=== PATIENT | male | born 1975 | race Caucasian/White ===

== ENCOUNTER 2020-05-21 22:35 | Inpatient (IN) | payer OTHER ==
[~2020-05-21] VITALS: Ht 175.3 cm; Wt 100.2 kg
--- NOTE | 2020-05-21 23:14 | NUR ---
bibs for c/o midsernal cp , nonradiating, 01/19 x 2 hrs. + sob. - h/a, -n/v. w/ [facility]. pt ambulatory to er bed and was placed on a monitor, VSS. will cont to monitor ,
[2020-05-21 23:21] LABS: BASOPHILS % (AUTO) 0.8 % (0.0-2.0); EOSINOPHILS % (AUTO) 2.7 % (0.0-6.0); HEMATOCRIT 42 % (39-51); HEMOGLOBIN 14.3 g/dL (13.5-17.5); LYMPHOCYTES # (AUTO) 1.6 /CMM (0.8-4.8); LYMPHOCYTES % (AUTO) 27.8 % (20.0-44.0); MEAN CORPUSCULAR HGB CONC 34 g/dl (31.0-36.0); MEAN CORPUSCULAR VOLUME 92 fL (80-96); MONOCYTES # (AUTO) 0.4 /CMM (0.1-1.30); MONOCYTES % (AUTO) 7.7 % (2.0-12.0); NEUTROPHILS # (AUTO) 3.4 /CMM (1.8-8.9); PLATELET COUNT (AUTO) 153 /CMM (150-450); RED BLOOD CELL COUNT(AUTO) 4.51 MIL/uL (4.5-6.0); WHITE BLOOD COUNT (AUTO) 5.6 K/uL (4.3-11.0)
[2020-05-21 23:39] LABS: CALCIUM, SERUM 9.3 mg/dL (8.5-10.1); CARBON DIOXIDE 25 mmol/L (21-32); CHLORIDE 102 mmol/L (98-107); GLUCOSE 93 mg/dL (74-106); POTASSIUM 3.4 mmol/L (3.5-5.1); SODIUM SERUM 138 mmol/L (136-145); UREA NITROGEN, BLOOD 16 mg/dL (7-18)
[2020-05-21 23:44] LABS: ALANINE AMINOTRANSFERASE 55 U/L (12-78); ALBUMIN 3.7 g/dL (3.4-5.0); ALKALINE PHOSPHATASE 72 U/L (46-116); ASPARTATE AMINOTRANSFERASE 24 U/L (15-37); B-TYPE NATRIURETIC PEPTIDE 45 PG/ML (0-125); BILIRUBIN,DIRECT 0.1 mg/dL (0.0-0.2); BILIRUBIN,TOTAL 0.4 mg/dL (0.2-1.0)
[2020-05-22] MEDS ORDERED: NITROGLYCERIN 0.4 MG/TAB BOTTLE SL ONE
[2020-05-22] MEDS ORDERED: CEFTRIAXONE 1GM BAG (ER ONLY) 1 GM/50 ML PIGGYBACK IV ONE
[2020-05-22] MEDS ORDERED: AZITHROMYCIN 500 MG in IV D5W 250 ML IV ONE ×2
[2020-05-22] MEDS ORDERED: NITROGLYCERIN 0.4 MG/TAB BOTTLE ONE (00:08)
[2020-05-22] MEDS ORDERED: CEFTRIAXONE 1GM BAG (ER ONLY) 50 ML IV ONE (00:08)
--- NOTE | 2020-05-22 00:15 | NUR ---
Call from lab. Rapid covid negative.
[2020-05-22] MEDS ORDERED: AZITHROMYCIN 500 MG VIAL ONE (00:28)
[2020-05-22 00:48] LABS: D-DIMER 0.65 mg/L(FEU (0.17-0.50)
--- NOTE | 2020-05-22 01:17 | NUR ---
pcr ccovid swab sent to the lab
--- NOTE | 2020-05-22 01:18 | NUR ---
pt in bed awake and alert, breathing evenly. no SOB. NAD. denied any pain or discomfort. - CP. VSS. will cont to monitor ,
--- NOTE | 2020-05-22 01:41 | NUR ---
Patient does not wish to proceed with medical care recommended Bay Munoz the hospitalist. Patient given information related to possible complications, up to and including , which could occur as a result of leaving the hospital at this time. Risk vs benefit of leaving the hospital were explained to the pt and to the friend over the phone. Patient verbalizes understanding of risks involved due to leaving against medical advice. Patient has signed AMA form. IV removed. Catheter intact and site benign. Pressure and 4x4 applied to site. No bleeding noted. Bay Munoz the hospitalist made aware of the situation,
[2020-05-22 01:44] VITALS: BP 113/58
== END 2020-05-22 01:45 | disposition left against medical advice (07) | DRG 139 ==
LOC: ER 22:38 → TRANSITION 23:57
PROVIDERS: ADMIT Nurse Practitioner Acute Care; ATTEND Nurse Practitioner Acute Care
DX: J15.9 Unspecified bacterial pneumonia (principal); I10 Essential (primary) hypertension; E78.5 Hyperlipidemia, unspecified; E66.9 Obesity, unspecified; Z68.32 Body mass index [BMI] 32.0-32.9, adult; F17.200 Nicotine dependence, unspecified, uncomplicated; Z82.49 Family history of ischemic heart disease and other diseases of the circulatory system
CPT/HCPCS: 36415; 71045-TC; 80048-TC; 80076-TC; 83880; 84484-TC; 85025-TC; 85378-TC; 85730-TC; G0378; J0456; J0696; J7060; U0003